=== PATIENT | male | born 1990 | race Caucasian/White ===

== ENCOUNTER 2023-06-30 10:21 | Emergency (ER) | payer OTHER ==
[~2023-06-30] VITALS: Ht 167.6 cm; Wt 81.6 kg
[2023-06-30 10:49] VITALS: BP 122/84; PULSE 89; RESP 18; TEMP 97; O2SAT 98
[2023-06-30] MEDS ORDERED: KETOROLAC 30 MG/ML VIAL IM ONE (11:50)
[2023-06-30] MEDS ORDERED: TRAM-748 PO (13:38)
[2023-06-30] MEDS ORDERED: ALBU0.0912 IH (13:38)
[2023-06-30] MEDS ORDERED: NAPR-1704 PO (13:38)
[2023-06-30 13:56] VITALS: BP 128/82; PULSE 80; RESP 18; TEMP 97; O2SAT 99
== END 2023-06-30 13:56 | disposition home or self-care (01) ==
LOC: MED 10:21
DX: S32.2XXA Fracture of coccyx, initial encounter for closed fracture (principal); S99.922A Unspecified injury of left foot, initial encounter; J45.909 Unspecified asthma, uncomplicated; M54.50 Low back pain, unspecified; V86.56XA Driver of dirt bike or motor/cross bike injured in nontraffic accident, initial encounter; Y93.89 Activity, other specified; Y92.89 Other specified places as the place of occurrence of the external cause; Y99.8 Other external cause status
CPT/HCPCS: 72100; 72220; 73650; 96372; 99284; J1885

== ENCOUNTER 2023-08-01 00:16 | Emergency (ER) | payer OTHER ==
[~2023-08-01] VITALS: Ht 170.2 cm; Wt 96.2 kg
[~2023-08-01 00:16] MED LIST: ALBU0.0912 IH; NAPR-1704 PO; TRAM-748 PO
[2023-08-01 00:30] VITALS: BP 161/90; PULSE 73; RESP 22; TEMP 97.8; O2SAT 96
[2023-08-01] MEDS ORDERED: predniSONE 20 MG TAB PO ONE (00:40)
[2023-08-01] MEDS ORDERED: ALBUTEROL SULFATE/IPRATROPIU 3 ML SOL IH ONE ×2 (00:40→00:55)
[2023-08-01 00:44] VITALS: PULSE 74; RESP 26; O2SAT 96
[2023-08-01] MEDS ORDERED: methylPREDNISolone SS 125 MG in WATER STERILE 2 ML IM ONE (00:45)
[2023-08-01] MEDS ORDERED: WATER STERILE 10 ML MC ONE (00:46)
[2023-08-01] MEDS ORDERED: methylPREDNISolone SS 125 MG/2 ML VIAL ONE (00:46)
[2023-08-01 00:55] VITALS: O2SAT 98
[2023-08-01] MEDS ORDERED: ALBUTEROL 0.083% 2.5 MG/3 ML NEBU INH ONE (00:55)
[2023-08-01] MEDS ORDERED: TAM75 PO (01:51)
[2023-08-01] MEDS ORDERED: PSEU120T31 PO (01:51)
[2023-08-01] MEDS ORDERED: PRED20TA5 PO (01:51)
[2023-08-01] MEDS ORDERED: ALBU0.0912 IH (01:51)
[2023-08-01] MEDS ORDERED: PRON INH (01:51)
[2023-08-01 02:14] VITALS: BP 161/90; PULSE 73; RESP 22; TEMP 97.8; O2SAT 98
[2023-08-01 03:12] LABS: FLU A ANTIGEN negative (NEGATIVE); FLU B ANTIGEN NEGATIVE (NEGATIVE)
== END 2023-08-01 02:08 | disposition home or self-care (01) ==
LOC: MED 00:16
DX: J45.901 Unspecified asthma with (acute) exacerbation (principal); J06.9 Acute upper respiratory infection, unspecified; Z20.822 Contact with and (suspected) exposure to COVID-19; Z79.899 Other long term (current) drug therapy; Z79.1 Long term (current) use of non-steroidal anti-inflammatories (NSAID)
CPT/HCPCS: 71045; 87426; 87804; 94640; 96372; 99284; J2930; J7613; Q0092